=== PATIENT | male | born 1965 | race Caucasian/White ===

== ENCOUNTER 2023-08-22 08:05 | Outpatient (CLI) | payer BC ==
[2023-08-22 14:45] LABS: BASOPHILS # (AUTO) 0.1 10^3/uL (0.0-0.1); EOSINOPHILS # (AUTO) 0.5 10^3/uL (0.0-0.7); HCT - HEMATOCRIT 49.1 % (42.0-52.0); HGB - HEMOGLOBIN 15.6 g/dL (14.0-18.0); LYMPHOCYTES # (AUTO) 1.9 10^3/uL (1.5-3.5); LYMPHOCYTES % (AUTO) 28.3 %; MEAN CORPUSCULAR HEMOGLOBIN 29.1 pg (27.0-31.0); MEAN CORPUSCULAR HGB CONC 31.8 g/dL (32.0-36.0); MEAN CORPUSCULAR VOLUME 91.4 fL (80.0-94.0); MEAN PLATELET VOLUME 10.1 fL (7.4-11.4); MONOCYTES # (AUTO) 0.6 10^3/uL (0.0-1.0); MONOCYTES % (AUTO) 8.3 %; NEUTROPHILS # (AUTO) 3.7 10^3/uL (1.5-6.6); NEUTROPHILS % (AUTO) 55.1 %; PLT - PLATELET COUNT 359 10^3/uL (130-450); RED BLOOD COUNT 5.37 10^6/uL (4.70-6.10); RED CELL DISTRIBUTION WIDTH 14.3 % (12.0-15.0); WHITE BLOOD COUNT 6.7 x10^3/uL (4.8-10.8)
[2023-08-22 16:03] LABS: ESTIMATED AVERAGE GLUCOSE 105 mg/dL (70-100); HEMOGLOBIN A1c% 5.3 % (4.27-6.07)
[2023-08-22 16:18] LABS: % IRON SATURATION 25 % (20-50); ALBUMIN 4.5 g/dL (3.2-5.5); ALBUMIN/GLOBULIN RATIO 2.3 (1.0-2.2); ALKALINE PHOSPHATASE 79 IU/L (42-121); ALT ALANINE AMINOTRANSFERASE 33 IU/L (10-60); AST ASPARTATE AMINOTRANSFERASE 22 IU/L (10-42); BILIRUBIN,TOTAL 0.7 mg/dL (0.2-1.0); BUN - BLOOD UREA NITROGEN 17 mg/dL (6-20); CALCIUM 9.2 mg/dL (8.5-10.3); CARBON DIOXIDE - CO2 27 mmol/L (21-32); CHLORIDE 104 mmol/L (101-111); CHOL/HDL RATIO 3.6 (<5.0); CHOLESTEROL 200 mg/dL; CRP HIGH SENSITIVITY 0.34 mg/L; GFR - MDRD 77 (>89); GLUCOSE 101 mg/dL (74-104); HDL CHOLESTEROL 55 mg/dL; IRON 94 ug/dL (50-212); LDL CHOLESTEROL,CALCULATED 125 mg/dL; LDL/HDL RATIO 2.3 (<3.6); POTASSIUM 4.3 mmol/L (3.5-4.5); SODIUM 137 mmol/L (135-145); TOTAL IRON BINDING CAPACITY 382 ug/dL (250-450); TOTAL PROTEIN 6.5 g/dL (6.4-8.9); TRANSFERRIN 273 mg/dL (203-362); TRIGLYCERIDES 99 mg/dL (48-352); VLDL CHOLESTEROL 20 mg/dL
[2023-08-22 16:22] LABS: THYROID STIMULATING HORMONE 1.72 uIU/mL (0.34-5.60)
[2023-08-22 16:25] LABS: FERRITIN 48.4 ng/mL (23.9-336.2)
[2023-08-23 07:10] LABS: ESTRADIOL 27.7 pg/mL (7.6-42.6); VITAMIN D 25-HYDROXY 41.7 ng/mL (30.0-100.0)
[2023-08-24 21:07] LABS: FREE TESTOSTERONE(DIRECT) 7.4 pg/mL (7.2-24.0)
== END 2023-08-22 08:06 | disposition home or self-care (01) ==
LOC: LAB.S 08:05
PROVIDERS: ATTEND Physician Assistant
DX: R53.83 Other fatigue (principal); E34.9 Endocrine disorder, unspecified; E78.5 Hyperlipidemia, unspecified; E87.1 Hypo-osmolality and hyponatremia; E55.9 Vitamin D deficiency, unspecified
CPT/HCPCS: 36415; 80053; 80061; 81599; 82306; 82533; 82627; 82642; 82670; 82728; 83036; 83540; 83721; 83789; 84140; 84153; 84154; 84402; 84403; 84439; 84443; 84466; 84481; 85025; 86141

== ENCOUNTER 2024-06-21 14:45 | Outpatient (CLI) | payer BC | END 2024-06-21 14:46 | disposition home or self-care (01) | LOC: LAB.S 14:45 | PROVIDERS: ATTEND Physician Assistant | DX: L72.3 Sebaceous cyst (principal) | CPT/HCPCS: 87070; 87077; 87181; 87205 ==